=== PATIENT | male | born 1955 | race African-American/Black ===

== ENCOUNTER 2018-03-07 20:08 | Emergency (ER) | payer OTHER ==
[2018-03-07 20:45] LABS: #Basophils 0.1 thou/uL (0.0-0.2); #Eosinphils 0.1 thou/uL (0.0-0.7); #Lymphocytes 3.5 thou/uL (1.20-3.40); #Monocytes 0.8 thou/uL (0.11-0.59); #Neutrophils 5.8 thou/uL (1.40-6.50); %Basophils 0.6 % (0.0-1.0); %Lymphocytes 34.5 % (21.0-51.0); %Monocytes 7.6 % (0.0-10.0); %Neutrophils 56.4 % (42.0-75.0); Hemoglobin 14.8 g/dL (14.0-18.0); Mean Corpuscular HGB CONC 33.2 g/dL (32.0-36.0); Mean Corpuscular Hemoglobin 31.7 pg (27.0-31.0); Mean Corpuscular Volume 95.4 fL (78.0-98.0); Mean Platelet Volume 8.1 fL (7.4-10.4); Platelet Count 156 thou/uL (130-400); Red Blood Cell (RBC) Count 4.66 mill/uL (4.70-6.10); White Blood Cell (WBC) Count 10.2 thou/uL (4.8-10.8)
[2018-03-07 21:07] LABS: ALT (SGPT) 30 U/L (8-55); AST (SGOT) 27 U/L (5-34); Alkaline Phosphatase 80 U/L (40-150); Anion Gap 9 mmol/L (10-20); BUN (Urea Nitrogen) 15 mg/dL (8.4-25.7); Bilirubin, Total 0.5 mg/dL (0.2-1.2); CK (CPK) 566 U/L (30-200); Calc. Creatinine Clearance 0 mL/min (70-130); Calcium 9.3 mg/dL (7.8-10.44); Carbon Dioxide 26 mmol/L (23-31); Chloride 105 mmol/L (98-107); Estimated GFR-MDRD 60; Globulin 4.1 g/dL (2.4-3.5); Glucose 96 mg/dL (80-115); Magnesium 1.9 mg/dL (1.6-2.6); Potassium 4.4 mmol/L (3.5-5.1); Protein, Total 8.1 g/dL (5.8-8.1); Sodium 136 mmol/L (136-145)
[2018-03-07 22:14] LABS: Bilirubin Negative (Negative); Blood, Urine Trace (Negative); Clarity CLEAR (Clear); Glucose, Urine (Dipstick) Negative (Negative); Leukocyte Negative (Negative); Nitrite Negative (Negative); Protein, Urine (Dipstick) Negative (Neg-Trace); Specific Gravity, Urine 1.006 (1.002-1.036); Urobilinogen 0.2 mg/dL (0.2-1.0); pH, Urine 7.5 (5.0-9.0)
[2018-03-07 22:16] LABS: Bacteria/HPF None Seen HPF (None Seen); Hyaline Casts/LPF 0-3 HYALINE CAST LPF (0-3 Hyaline); RBC/HPF 0-3 HPF (0-3); Squamous Epithelial None Seen HPF (0-3); WBC/HPF None Seen HPF (0-3)
--- NOTE | 2018-03-07 23:40 | ULT ---
DOPPLER VENOUS ULTRASOUND OF BOTH LOWER EXTREMITIES: INDICATIONS: Bilateral calf pain. TECHNIQUE: Diaz scale, color Doppler, and vascular duplex with spectral analysis was performed of the deep venou s structures of both lower extremities. The common femoral vein, superficial femoral vein, popliteal vein, posterior tibial vein, proximal greater saphenous, and proximal profunda veins were assessed bi laterally. FINDINGS: There is normal compression, flow, and augmentation seen within the deep venous structures of both lo wer extremities. IMPRESSION: No evidence of deep venous thrombosis within both lower extremities. POS: [facility]
== END 2018-03-07 22:47 | disposition home or self-care (01) ==
LOC: ERS 20:08
DX: R25.2 Cramp and spasm (principal); K21.9 Gastro-esophageal reflux disease without esophagitis; I10 Essential (primary) hypertension; F41.9 Anxiety disorder, unspecified; Z79.899 Other long term (current) drug therapy
CPT/HCPCS: 80053; 81003; 81015; 82550; 83735; 85025; 85379; 93970; 96360; 96361

== ENCOUNTER 2018-10-20 13:29 | Outpatient (CLI) | payer MEDICARE, OTHER ==
--- NOTE | 2018-10-20 15:05 | ULT ---
SCROTAL/TESTICULAR ULTRASOUND: 10/20/18 HISTORY: Left hydrocele and left inguinal pain. Evaluate for inguinal hernia. TECHNIQUE: Multiplanar yanes scale and color Doppler images were obtained in a bilateral testicular/scrotal ultra sound. Spectral analysis of the Doppler waveforms of the testicles were performed. FINDINGS: The testicles are normal in echogenicity without focal lesions and demonstrate normal symmetric inter nal flow. The epididymi are unremarkable bilaterally. There are moderate bilateral hydroceles, left g reater than right. There is no evidence of inguinal hernia. IMPRESSION: 1. Bilateral hydroceles, left greater than right. 2. No evidence of inguinal hernia. POS: [facility]
== END 2018-10-20 13:30 | disposition home or self-care (01) ==
LOC: BICULT 13:29
PROVIDERS: ATTEND Urology
DX: N43.3 Hydrocele, unspecified (principal)
CPT/HCPCS: 76870; 93976

== ENCOUNTER 2019-04-06 09:02 | Outpatient (CLI) | payer MEDICARE ==
[2019-04-06 10:36] LABS: Hemoglobin 15.1 g/dL (14.0-18.0); Mean Corpuscular HGB CONC 33.2 g/dL (32.0-36.0); Mean Corpuscular Hemoglobin 31.8 pg (27.0-31.0); Mean Corpuscular Volume 95.7 fL (78.0-98.0); Mean Platelet Volume 7.6 fL (7.4-10.4); Platelet Count 146 thou/uL (130-400); RBC Distribution Width 13.4 % (11.5-14.5); Red Blood Cell (RBC) Count 4.73 mill/uL (4.70-6.10); White Blood Cell (WBC) Count 7.4 thou/uL (4.8-10.8)
[2019-04-06 10:45] LABS: PTT 28.6 SEC (22.9-36.1); Prothrombin Time 13.6 SEC (12.0-14.7)
[2019-04-06 10:50] LABS: Bacteria/HPF None Seen HPF (None Seen); Bilirubin Negative (Negative); Blood, Urine 1+ (Negative); Clarity Clear (Clear); Glucose, Urine (Dipstick) Normal (Negative); Leukocyte Negative Leu/uL (Negative); Nitrite Negative (Negative); Protein, Urine (Dipstick) Negative (Neg-Trace); Squamous Epithelial 0-3 HPF (0-3); Urobilinogen Normal mg/dL (Less than 2); WBC/HPF 0-3 HPF (0-3)
[2019-04-06 10:57] LABS: Anion Gap 13 mmol/L (10-20); BUN (Urea Nitrogen) 13 mg/dL (8.4-25.7); Calc. Creatinine Clearance 0 mL/min (70-130); Calcium 9.6 mg/dL (7.8-10.44); Carbon Dioxide 26 mmol/L (23-31); Chloride 106 mmol/L (98-107); Estimated GFR-MDRD 74; Glucose 97 mg/dL (80-115); Potassium 4.7 mmol/L (3.5-5.1); Sodium 140 mmol/L (136-145)
== END 2019-04-06 09:03 | disposition home or self-care (01) ==
LOC: LABBT 09:02
PROVIDERS: ATTEND Urology
DX: Z01.818 Encounter for other preprocedural examination (principal); R97.20 Elevated prostate specific antigen [PSA]
CPT/HCPCS: 80048; 81001; 85027; 85610; 85730; 87086; 93005; 93010

== ENCOUNTER 2019-04-20 05:47 | Day surgery (SDC) | payer MEDICARE ==
[2019-04-06 09:54] VITALS: BMI 32.8
[2019-04-20] MEDS ORDERED: Ondansetron PF 4 MG/2 ML Vial ONE (09:37)
[2019-04-20] MEDS ORDERED: Ketorolac Tromethamine 30 MG/ML VIAL ONE (09:37)
[2019-04-20] MEDS ORDERED: Lidocaine 1% PF 5 ML VIAL ONE (09:37)
[2019-04-20] MEDS ORDERED: Dexamethasone 20 MG/5 ML VIAL ONE (09:37)
[2019-04-20] MEDS ORDERED: PROPOFOL 200 MG/20 ML VIAL ONE (09:37)
--- NOTE | 2019-04-20 11:41 | OP ---
DATE OF PROCEDURE: 04/20/2019 PRIMARY CARE PHYSICIAN: Cheng Alexander MD PREOPERATIVE DIAGNOSES: 1. A 63-year-old male with history of microscopic hematuria, previous workup negative. 2. History of elevated PSA velocity, unremarkable JACQUELINE. POSTOPERATIVE DIAGNOSES: 1. A 63-year-old male with history of microscopic hematuria, previous workup negative. 2. History of elevated PSA velocity, unremarkable JACQUELINE. PROCEDURES PERFORMED: Flexible cystoscopy, transrectal ultrasound volume study, 12-core needle biopsy of the prostate. ANESTHESIA: LMA. COMPLICATIONS: None apparent. DISPOSITION: To recovery room in stable condition. INDICATIONS FOR PROCEDURE AND HISTORY: This is a 63-year-old male previously followed by Dr. Negrete for history of BPH. Previous cystoscopy due to microscopic hematuria demonstrated coapting lateral lobes with no significant obstruction. CT previously demonstrated no significant pathology of concern. He presents today for flexible cystoscopy due to recurrent microhematuria and elevated PSA velocity. Risks and complications and indications reviewed including, but not limited to, bleeding, pain, infection, chronic pain, and urosepsis. All questions were answered to his satisfaction. He desired to proceed. DESCRIPTION OF PROCEDURE: After an informed consent was signed, the patient was taken to the operating room, placed in a supine position with the genital area prepped and draped in the usual surgical sterile fashion. A flexible cystoscopy was performed, which demonstrated normal anterior and posterior urethra. Bilobar coapting lateral lobes, however, no significant obstructive lateral lobes were appreciated. Slightly high median bar, however, no evidence of intravesical median lobe. The right UO was identified in the intraureteral bridge about 3 mm proximal to the bladder neck. The left UO was identified, however, it was somewhat subtle compared to the right. His previous CT demonstrated no evidence of hydronephrosis. At this time, we surveyed the bladder and as previous, he does have an oblong morphology of the bladder with no bladder tumors were seen. At this time, the cystoscope was then subsequently removed. We did place the patient in the left lateral decubitus position to perform a transrectal ultrasound biopsy with pressure points padded. Transrectal ultrasound probe was placed after an unremarkable digital rectal exam. A volume study was obtained demonstrating volume of 38 g: Width of 5.2, height of 3.4, length of 4.09. Subsequently, we performed a 12- core needle biopsy of the prostate in a standard 12 core biopsy. He tolerated the biopsy uneventfully. Transitioned to recovery room in stable condition. Due to Cipro resistance swab on the rectal smear, he is on Omnicef. He will continue 5-day course as previously prescribed and will follow up with me next week to review pathology. Job ID: [id number] MTDD
[2019-04-20] MEDS ORDERED: Meropenem 2 GM, Admixture Fee 1 EACH in Sodium Chloride 0.9% 100 ML IVPB SCH (15:00)
== END 2019-04-20 10:35 | disposition home or self-care (01) ==
LOC: SDC 05:47
PROVIDERS: ATTEND Urology
PROC: 0VB03ZX Excision of Prostate, Percutaneous Approach, Diagnostic (ICD-10-PCS; principal; 2019-04-20)
DX: R31.29 Other microscopic hematuria (principal); R97.20 Elevated prostate specific antigen [PSA]; N52.9 Male erectile dysfunction, unspecified; I10 Essential (primary) hypertension; K21.9 Gastro-esophageal reflux disease without esophagitis; Z79.899 Other long term (current) drug therapy; Z87.891 Personal history of nicotine dependence; Z88.8 Allergy status to other drugs, medicaments and biological substances; Z91.013 Allergy to seafood; Z91.041 Radiographic dye allergy status
CPT/HCPCS: 88305; J1100; J1885; J2001; J2405; J2704

== ENCOUNTER 2019-05-03 07:52 | Outpatient (CLI) | payer MEDICARE ==
--- NOTE | 2019-05-03 09:29 | CT ---
CT ABDOMEN AND PELVIS PERFORMED WITHOUT CONTRAST ENHANCEMENT: Date: 05/03/19 HISTORY: Microhematuria. FINDINGS: The lung bases show some linear scarring. There is a calcified granuloma in the lingula. There is a s mall hiatal hernia noted. Right and left adrenal glands, and right and left kidneys are normal in size. There is what appears t o be some parapelvic cyst formation on the left. There are no renal calculi seen. There is no signifi cant periaortic or mesenteric adenopathy. CT of pelvis was performed with contrast enhancement. Prostate is prominent. Bladder wall does not ap pear significantly thickened. There is no pelvic lymphadenopathy or mass. IMPRESSION: 1. No evidence of renal calculi. 2. Small hiatal hernia. 3. Post cholecystectomy change. 4. Enlarged prostate. POS: [facility]
== END 2019-05-03 07:53 | disposition home or self-care (01) ==
LOC: CT 07:52
PROVIDERS: ATTEND Urology
DX: R31.29 Other microscopic hematuria (principal); K44.9 Diaphragmatic hernia without obstruction or gangrene; N40.0 Benign prostatic hyperplasia without lower urinary tract symptoms; Z90.49 Acquired absence of other specified parts of digestive tract
CPT/HCPCS: 74176

== ENCOUNTER 2019-05-09 06:20 | Outpatient (CLI) | payer MEDICARE ==
[2019-05-09 11:20] LABS: Hemoglobin 14.2 g/dL (14.0-18.0); Mean Corpuscular HGB CONC 32.9 g/dL (32.0-36.0); Mean Corpuscular Volume 97.3 fL (78.0-98.0); Mean Platelet Volume 8.3 fL (7.4-10.4); Platelet Count 129 thou/uL (130-400); RBC Distribution Width 13.3 % (11.5-14.5); Red Blood Cell (RBC) Count 4.44 mill/uL (4.70-6.10); White Blood Cell (WBC) Count 6.5 thou/uL (4.8-10.8)
[2019-05-09 11:21] LABS: Bacteria/HPF None Seen HPF (None Seen); Bilirubin Negative (Negative); Blood, Urine Trace (Negative); Clarity Clear (Clear); Glucose, Urine (Dipstick) Normal (Negative); Leukocyte Negative Leu/uL (Negative); Nitrite Negative (Negative); Protein, Urine (Dipstick) Negative (Neg-Trace); RBC/HPF 0-3 HPF (0-3); Squamous Epithelial None Seen HPF (0-3); Urobilinogen Normal mg/dL (Less than 2); WBC/HPF 0-3 HPF (0-3)
[2019-05-09 11:31] LABS: PTT 30.7 SEC (22.9-36.1); Prothrombin Time 13.5 SEC (12.0-14.7)
[2019-05-09 11:51] LABS: Anion Gap 14 mmol/L (10-20); BUN (Urea Nitrogen) 12 mg/dL (8.4-25.7); Calc. Creatinine Clearance 0 mL/min (70-130); Calcium 8.7 mg/dL (7.8-10.44); Carbon Dioxide 23 mmol/L (23-31); Chloride 108 mmol/L (98-107); Estimated GFR-MDRD 88; Glucose 75 mg/dL (80-115); Potassium 4.8 mmol/L (3.5-5.1); Sodium 140 mmol/L (136-145)
--- NOTE | 2019-05-12 13:06 | EKG ---
Test Reason : Blood Pressure : / mmHG Vent. Rate : 055 BPM Atrial Rate : 055 BPM P-R Int : 176 ms QRS Dur : 090 ms QT Int : 392 ms P-R-T Axes : 065 014 022 degrees QTc Int : 375 ms Sinus bradycardia Otherwise normal ECG Confirmed by NOHEMY SALAZAR ([id number]) on 05/12/2019 1:05:50 PM Referred By: JOSE Confirmed By:NOHEMY SALAZAR
== END 2019-05-09 06:21 | disposition home or self-care (01) ==
LOC: LABBT 06:20
PROVIDERS: ATTEND Urology
DX: Z01.818 Encounter for other preprocedural examination (principal); N43.3 Hydrocele, unspecified
CPT/HCPCS: 80048; 81001; 85027; 85610; 85730; 87086; 93005; 93010

== ENCOUNTER 2019-05-23 07:59 | Day surgery (SDC) | payer MEDICARE ==
[2019-05-09 09:34] VITALS: BMI 32.8
[2019-05-23] MEDS ORDERED: Lidocaine 1% PF 5 ML VIAL ONE (09:48)
[2019-05-23] MEDS ORDERED: Ondansetron PF 4 MG/2 ML Vial ONE (09:48)
[2019-05-23] MEDS ORDERED: Dexamethasone 20 MG/5 ML VIAL ONE (09:48)
[2019-05-23] MEDS ORDERED: PROPOFOL 200 MG/20 ML VIAL ONE (09:48)
[2019-05-23] MEDS ORDERED: Fentanyl 100 MCG/2 ML VIAL ONE ×3 (10:45→13:07)
[2019-05-23] MEDS ORDERED: Bacitracin Zinc Ointment 30 gm TUBE ONE (10:48)
[2019-05-23] MEDS ORDERED: Sodium Chloride 0.9% 10 ML ONE (10:48)
[2019-05-23] MEDS ORDERED: Gentamicin 80 MG/2 ML VIAL ONE (10:48)
[2019-05-23] MEDS ORDERED: HYDROcodone/Acetaminophen 5/325 mg Tablet ONE (13:35)
--- NOTE | 2019-05-23 13:35 | OP ---
DATE OF PROCEDURE: 05/23/2019 PRIMARY CARE PHYSICIAN: Cheng Alexander MD PREOPERATIVE DIAGNOSIS: A 63-year-old male with history of left hydrocele. POSTOPERATIVE DIAGNOSIS: A 63-year-old male with history of left hydrocele. PROCEDURE PERFORMED: Left hydrocelectomy. ANESTHESIA: General. COMPLICATIONS: None apparent. ESTIMATED BLOOD LOSS: Minimal to none. DRAINS: A quarter-inch Udall to the left hemiscrotum x1. SPECIMEN: Left hydrocele sac. ESTIMATED BLOOD LOSS: Minimal. INDICATIONS FOR PROCEDURE AND HISTORY: Mr. Horton is a pleasant 63-year-old male, with history of BPH, history of hydrocele, microscopic hematuria, elevated PSA. I have worked up his elevated PSA, velocity of which is negative for malignancy. The patient is known to have history of microscopic hematuria. Cystoscopy negative. His recent CT of the abdomen and pelvis demonstrates no significant pathology of concern. As he has symptomatic left hydrocele, presents for elective hydrocelectomy. Risks and complications of the procedure were reviewed including, but not limited to, recurrence of hydrocele, chronic pain, hematoma, testicular atrophy, injury to adjacent organs and the scrotal contents, bleeding, pain, infection, chronic pain. All questions answered and options of observation also reviewed and he desired to proceed. DESCRIPTION OF PROCEDURE: After an informed consent was signed, the patient was taken to the operating room, placed in a supine position with the genital area prepped and draped in the usual surgical sterile fashion. Again, noted was a moderate size left hydrocele. A left transverse scrotal incision was made with a 15 blade. The dartos fascia was opened to the limits of skin incision. We sharply dissected the tunica vaginalis, delivering the hydrocele sac through the scrotal incision. This was mobilized to the level of the cord, external ring. The hydrocele sac was then opened with Metzenbaum scissors and approximately 300 mL of clear yellow straw fluid was evacuated from the hydrocele. The testicle itself was grossly unremarkable. The redundant hydrocele sac was excised and the edges were cauterized. Using 3-0 Vicryl, we oversewed the edges of the hydrocele sac in a baseball stitch fashion in a continuous manner. The scrotal contents were inspected, irrigated with antibiotic irrigation. We obtained good hemostasis of the dartos fascia being meticulous and obtained hemostasis with electrocautery as needed. The quarter-inch Udall was placed in the left inferior aspect of the scrotum with a Deisi, the Yanely was then sutured to skin using 3 -0 nylon. The cord and the testicle were then placed in the left hemiscrotum with care attention to pay there was avoidance of twisting of the cord. The left testicle was placed into the left hemiscrotum in its normal anatomical position. The dartos fascia was then closed with 2-0 Vicryl in a running fashion. Skin closed with 2 -0 chromic in a vertical mattress. sterile pressure dressing was applied and he tolerated the procedure well. He will follow up with me this Thursday for wound inspection, drain removal. He is discharged with [place] 5/325 one to two p.o. q.6 to 8 hours p.r.n., #30 with no refill, Keflex for 7 days. Job ID: [id number] MTDD
== END 2019-05-23 14:38 | disposition home or self-care (01) ==
LOC: SDC 07:59
PROVIDERS: ATTEND Urology
PROC: 0VB70ZZ Excision of Left Tunica Vaginalis, Open Approach (ICD-10-PCS; principal; 2019-05-23)
DX: N43.3 Hydrocele, unspecified (principal); R97.20 Elevated prostate specific antigen [PSA]; N40.0 Benign prostatic hyperplasia without lower urinary tract symptoms; I10 Essential (primary) hypertension; K21.9 Gastro-esophageal reflux disease without esophagitis; Z79.899 Other long term (current) drug therapy; Z88.8 Allergy status to other drugs, medicaments and biological substances; Z91.013 Allergy to seafood; Z91.041 Radiographic dye allergy status; Z98.890 Other specified postprocedural states
CPT/HCPCS: 88302; J0690; J1100; J1580; J2001; J2405; J2704; J3010; J3370

== ENCOUNTER 2019-11-08 22:55 | Emergency (ER) | payer MEDICARE ==
--- NOTE | 2019-11-09 07:33 | ULT ---
PRELIMINARY REPORT/DIRECT RADIOLOGY/EMERGENCY AFTER HOURS PROCEDURE ULTRASOUND OF TESTICLES CLINICAL HISTORY: Pain. Edema. TECHNIQUE: Multiple ultrasound images of the testicles and scrotum were obtained and submitted for in terpretation. COMPARISON: None FINDINGS: RIGHT: The right testicle measures 3.7 x 4.0 x 3.0 cm. There is normal parenchymal echotexture on the images obtained. There is normal Doppler vascularity on the images obtained. There is no evidence fo r mass on the images obtained. The right epididymal head measures 7.2 mm. There are no focal lesions seen. A large hydrocele is seen. There is no evidence of varicocele. LEFT: The left testicle measures 3.2 x 3.7 x 2.2 cm. There is normal parenchymal echotexture on the i mages obtained. There is normal Doppler vascularity on the images obtained. There is no evidence for mass on the images obtained. The left epididymal head measures 10.2 mm. There are no focal lesions se en. A large hydrocele is seen There is no evidence of varicocele. IMPRESSION: 1.Large bilateral hydroceles. Otherwise unremarkable ultrasound of the bilateral testicles. No sonogr aphic evidence for testicular torsion. ELECTRONICALLY SIGNED BY: Glen Vinson MD Nov 09, 2019 1:01:50 AM CDT FINAL REPORT TESTICULAR ULTRASOUND: I agree with the preliminary report. There is no evidence of intratesticular mass or torsion. There is a moderate-sized right hydrocele. There is a very trace or tiny left hydrocele. Epididymi appea r within normal limits. There is marked scrotal thickening, particularly along the left hemiscrotum. A component of scrotal cellulitis is not excluded. POS: [facility]
== END 2019-11-09 01:44 | disposition home or self-care (01) ==
LOC: ERS 22:55
DX: N43.3 Hydrocele, unspecified (principal); K21.9 Gastro-esophageal reflux disease without esophagitis; I10 Essential (primary) hypertension; F41.9 Anxiety disorder, unspecified; Z79.899 Other long term (current) drug therapy
CPT/HCPCS: 76870; 93976

== ENCOUNTER 2020-08-31 13:42 | Emergency (ER) | payer MEDICARE | END 2020-08-31 14:35 | disposition home or self-care (01) | LOC: ERS 13:42 | DX: B86 Scabies (principal); K21.9 Gastro-esophageal reflux disease without esophagitis; I10 Essential (primary) hypertension; Z79.899 Other long term (current) drug therapy | CPT/HCPCS: 99282 ==

== ENCOUNTER 2020-09-03 06:38 | Emergency (ER) | payer MEDICARE | END 2020-09-03 08:17 | disposition home or self-care (01) | LOC: ERS 06:38 | DX: B86 Scabies (principal); K21.9 Gastro-esophageal reflux disease without esophagitis; I10 Essential (primary) hypertension; Z79.899 Other long term (current) drug therapy | CPT/HCPCS: 99282 ==

== ENCOUNTER 2020-09-19 16:03 | Inpatient (IN) | payer MEDICARE ==
[2020-09-19 17:31] LABS: #Basophils 0.1 thou/uL (0.0-0.2); #Eosinphils 0.1 thou/uL (0.0-0.7); #Lymphocytes 2.3 thou/uL (1.20-3.40); #Monocytes 0.6 thou/uL (0.11-0.59); #Neutrophils 4.8 thou/uL (1.40-6.50); %Basophils 0.7 % (0.0-1.0); %Eosinophils 1.4 % (0.0-10.0); %Lymphocytes 29.2 % (21.0-51.0); %Neutrophils 60.6 % (42.0-75.0); Hemoglobin 13.6 g/dL (14.0-18.0); Mean Corpuscular Hemoglobin 30.6 pg (27.0-31.0); Mean Corpuscular Volume 95.8 fL (78.0-98.0); Mean Platelet Volume 7.6 fL (7.4-10.4); Platelet Count 157 thou/uL (130-400); RBC Distribution Width 13.4 % (11.5-14.5); Red Blood Cell (RBC) Count 4.45 mill/uL (4.70-6.10); White Blood Cell (WBC) Count 7.9 thou/uL (4.8-10.8)
[2020-09-19 17:54] LABS: ALT (SGPT) 35 U/L (8-55); AST (SGOT) 29 U/L (5-34); Albumin 4.1 g/dL (3.4-4.8); Alkaline Phosphatase 84 U/L (40-110); Anion Gap 15 mmol/L (10-20); BUN (Urea Nitrogen) 18 mg/dL (8.4-25.7); Bilirubin, Total 0.2 mg/dL (0.2-1.2); Calc. Creatinine Clearance 0 mL/min (70-130); Calcium 9.1 mg/dL (7.8-10.44); Carbon Dioxide 22 mmol/L (23-31); Chloride 108 mmol/L (98-107); Globulin 3.3 g/dL (2.4-3.5); Glucose 97 mg/dL (80-115); Potassium 4.1 mmol/L (3.5-5.1); Protein, Total 7.4 g/dL (5.8-8.1); Sodium 141 mmol/L (136-145)
[2020-09-19 18:25] LABS: Bacteria/HPF None Seen HPF (None Seen); Bilirubin Negative (Negative); Blood, Urine Trace (Negative); Clarity Clear (Clear); Glucose, Urine (Dipstick) Normal (Negative); Ketone, Urine Negative (Negative); Leukocyte Negative Leu/uL (Negative); Nitrite Negative (Negative); Protein, Urine (Dipstick) Negative (Neg-Trace); RBC/HPF 0-3 HPF (0-3); Specific Gravity, Urine 1.016 (1.002-1.036); Squamous Epithelial None Seen HPF (0-3); Urobilinogen Normal mg/dL (Less than 2); WBC/HPF 0-3 HPF (0-3)
[2020-09-19] MEDS ORDERED: Bisacodyl 5 MG TAB PO PRN (20:53)
[2020-09-19] MEDS ORDERED: Ondansetron PF 4 MG/2 ML Vial IVP PRN (20:53)
[2020-09-19] MEDS ORDERED: Acetaminophen 325 MG TAB PO PRN (20:53)
[2020-09-19] MEDS ORDERED: HYDROcodone/Acetaminophen 7.5/325 mg Tablet PO PRN (20:53)
[2020-09-19] MEDS ORDERED: Loratadine 10 MG TAB PO PRN (21:04)
[2020-09-19 21:30] LABS: Iron 66 ug/dL (65-175); Iron Binding Capacity, Total 248 mcg/dL (261-462)
[2020-09-19] MEDS: carBAMazepine 200 MG TAB PO SCH (23:20)
[2020-09-20 05:36] LABS: SARS-CoV-2 PCR by NAA Not Detected (NotDetected)
[2020-09-20 06:31] LABS: ALT (SGPT) 33 U/L (8-55); AST (SGOT) 25 U/L (5-34); Alkaline Phosphatase 78 U/L (40-110); Anion Gap 11 mmol/L (10-20); BUN (Urea Nitrogen) 13 mg/dL (8.4-25.7); Bilirubin, Total 0.3 mg/dL (0.2-1.2); Calc. Creatinine Clearance 0 mL/min (70-130); Calcium 9.3 mg/dL (7.8-10.44); Carbon Dioxide 25 mmol/L (23-31); Cardiac Risk 3.7 (Less than 4.5); Chloride 107 mmol/L (98-107); Cholesterol 159 mg/dl (< 200 Desired); Globulin 3.5 g/dL (2.4-3.5); Glucose 95 mg/dL (80-115); HDL Cholesterol 43 mg/dL (>60 Neg Risk); LDL Cholesterol, Calculated 105 mg/dL; Magnesium 1.8 mg/dL (1.6-2.6); Protein, Total 7.5 g/dL (5.8-8.1); Sodium 139 mmol/L (136-145); Triglycerides 55 mg/dL (Less than 150)
[2020-09-20 06:36] LABS: Band 1 % (5-11); Hemoglobin 14.1 g/dL (14.0-18.0); Lymphocytes 24 % (21-51); MDiff Complete? YES; Mean Corpuscular HGB CONC 32.1 g/dL (32.0-36.0); Mean Corpuscular Hemoglobin 30.8 pg (27.0-31.0); Mean Platelet Volume 7.2 fL (7.4-10.4); Monocytes 8 % (0-10); Neutrophil 43 % (42-75); Platelet Count 152 thou/uL (130-400); Platelet Morphology Comment Appears Adequate; RBC Distribution Width 13.5 % (11.5-14.5); Reactive Lymphocytes 24 % (0-10); Red Blood Cell (RBC) Count 4.58 mill/uL (4.70-6.10); White Blood Cell (WBC) Count 10.1 thou/uL (4.8-10.8)
[2020-09-20] MEDS ORDERED: Pantoprazole 40 MG VIAL ONE (08:38)
[2020-09-20] MEDS ORDERED: Enoxaparin Sodium 40 MG/0.4 ML SYRINGE ONE (08:38)
[2020-09-20] MEDS: Losartan 25 MG TAB PO SCH (08:50)
[2020-09-20] MEDS: Enoxaparin Sodium 40 MG/0.4 ML SYRINGE SC SCH (08:51)
[2020-09-20] MEDS: Pantoprazole 40 MG GRANULES PACKET PO SCH (09:37)
[2020-09-20] MEDS: carBAMazepine 200 MG TAB PO SCH ×2 (09:37→20:27)
[2020-09-20 16:33] VITALS: BMI 32.1
[2020-09-20] MEDS ORDERED: Aspirin 325 MG TAB PO SCH (17:30)
[2020-09-21] MEDS: Pantoprazole 40 MG GRANULES PACKET PO SCH (08:21)
[2020-09-21 08:22] VITALS: BP 133/73
[2020-09-21] MEDS: Losartan 25 MG TAB PO SCH (08:23)
[2020-09-21] MEDS: carBAMazepine 200 MG TAB PO SCH (08:25)
[2020-09-21] MEDS: Enoxaparin Sodium 40 MG/0.4 ML SYRINGE SC SCH (08:26)
[2020-09-21] MEDS ORDERED: Aspirin 81 mg Enteric Coated Tablet PO SCH (09:00)
[2020-09-21] MEDS ORDERED: Aspirin 325 MG TAB PO SCH (09:00)
[2020-09-21 11:59] VITALS: TEMP 98.3
[2020-09-22] MEDS ORDERED: Amlodipine 5 MG TAB PO SCH (09:00)
== END 2020-09-21 16:05 | disposition home or self-care (01) | DRG 69 ==
LOC: ERS 16:03 → 2SE 19:20 → ERHOLD 19:29 → 2SE 09-20 15:22
PROVIDERS: ADMIT Internal Medicine; ATTEND Internal Medicine
DX: G45.9 Transient cerebral ischemic attack, unspecified (principal); Z20.822 Contact with and (suspected) exposure to COVID-19; K21.9 Gastro-esophageal reflux disease without esophagitis; I10 Essential (primary) hypertension; F41.9 Anxiety disorder, unspecified; G25.81 Restless legs syndrome; I08.1 Rheumatic disorders of both mitral and tricuspid valves; Z98.1 Arthrodesis status; Z79.899 Other long term (current) drug therapy; Z79.82 Long term (current) use of aspirin; Z91.013 Allergy to seafood; Z88.8 Allergy status to other drugs, medicaments and biological substances; Z91.09 Other allergy status, other than to drugs and biological substances; Z28.21 Immunization not carried out because of patient refusal; Z87.891 Personal history of nicotine dependence; Z90.49 Acquired absence of other specified parts of digestive tract
CPT/HCPCS: 36415; 36416; 70450; 70551; 80053; 80061; 81003; 81015; 83036; 83540; 83550; 83735; 83880; 84484; 85007; 85025; 85027; 87635; 93005; 93306; 93880; C9113; J1650; U0003; U0005

== ENCOUNTER 2020-09-26 10:27 | Observation (INO) | payer MEDICARE ==
[2020-09-26] MEDS ORDERED: Aspirin Chewable 81 MG TAB ONE (10:47)
[2020-09-26 11:17] LABS: #Basophils 0.1 thou/uL (0.0-0.2); #Eosinphils 0.1 thou/uL (0.0-0.7); #Monocytes 0.5 thou/uL (0.11-0.59); #Neutrophils 4.3 thou/uL (1.40-6.50); %Eosinophils 1.3 % (0.0-10.0); %Lymphocytes 28.6 % (21.0-51.0); %Monocytes 7.6 % (0.0-10.0); %Neutrophils 61.6 % (42.0-75.0); Hemoglobin 15.1 g/dL (14.0-18.0); Mean Corpuscular HGB CONC 32.5 g/dL (32.0-36.0); Mean Corpuscular Hemoglobin 31.2 pg (27.0-31.0); Mean Corpuscular Volume 96.1 fL (78.0-98.0); Mean Platelet Volume 7.9 fL (7.4-10.4); Platelet Count 153 thou/uL (130-400); RBC Distribution Width 13.2 % (11.5-14.5); Red Blood Cell (RBC) Count 4.83 mill/uL (4.70-6.10); White Blood Cell (WBC) Count 6.9 thou/uL (4.8-10.8)
[2020-09-26] MEDS ORDERED: Nitroglycerin 2% Ointment 1 INCH/1 GM Packet ONE (11:32)
[2020-09-26 12:41] LABS: ALT (SGPT) 29 U/L (8-55); AST (SGOT) 26 U/L (5-34); Albumin 4.1 g/dL (3.4-4.8); Alkaline Phosphatase 96 U/L (40-110); Anion Gap 13 mmol/L (10-20); BUN (Urea Nitrogen) 12 mg/dL (8.4-25.7); Bilirubin, Total 0.5 mg/dL (0.2-1.2); Calc. Creatinine Clearance 0 mL/min (70-130); Calcium 9.4 mg/dL (7.8-10.44); Carbon Dioxide 25 mmol/L (23-31); Chloride 102 mmol/L (98-107); Globulin 3.6 g/dL (2.4-3.5); Glucose 95 mg/dL (80-115); Lipase 21 U/L (8-78); Potassium 4.2 mmol/L (3.5-5.1); Protein, Total 7.7 g/dL (5.8-8.1); Sodium 136 mmol/L (136-145)
[2020-09-26 15:15] LABS: Troponin I Less than 0.010 ng/mL (< 0.028)
[2020-09-26 15:43] VITALS: BMI 32.6
[2020-09-26] MEDS: Nitroglycerin 2% Ointment 1 INCH/1 GM Packet TOP SCH ×2 (16:13→20:27)
[2020-09-26 18:11] LABS: Troponin I Less than 0.010 ng/mL (< 0.028)
[2020-09-26] MEDS: carBAMazepine 200 MG TAB PO SCH (20:27)
[2020-09-26 21:23] LABS: SARS-CoV-2 PCR by NAA Not Detected (NotDetected)
[2020-09-26] MEDS ORDERED: Acetaminophen 325 MG TAB PO PRN (21:57)
[2020-09-27] MEDS: Nitroglycerin 2% Ointment 1 INCH/1 GM Packet TOP SCH ×2 (05:01→14:23)
[2020-09-27 05:23] LABS: Cardiac Risk 3.7 (Less than 4.5)
[2020-09-27] MEDS ORDERED: Losartan 25 MG TAB PO SCH (09:00)
[2020-09-27] MEDS ORDERED: Aspirin Chewable 81 MG TAB PO SCH (09:00)
[2020-09-27] MEDS ORDERED: Amlodipine 5 MG TAB PO SCH (09:00)
[2020-09-27] MEDS: carBAMazepine 200 MG TAB PO SCH (10:39)
[2020-09-27 11:30] VITALS: BP 132/74; TEMP 97.7
[2020-09-27] MEDS ORDERED: Pantoprazole 40 MG GRANULES PACKET PO SCH (11:30)
[2020-09-27] MEDS ORDERED: Atorvastatin Calcium 40 MG TAB PO SCH (21:00)
== END 2020-09-27 14:37 | disposition home or self-care (01) ==
LOC: ERS 10:27 → 2SW 13:52
PROVIDERS: ADMIT Family Medicine; ATTEND Hospitalist
DX: R07.89 Other chest pain (principal); I10 Essential (primary) hypertension; E78.5 Hyperlipidemia, unspecified; G62.9 Polyneuropathy, unspecified; G25.81 Restless legs syndrome; K21.9 Gastro-esophageal reflux disease without esophagitis; Z86.73 Personal history of transient ischemic attack (TIA), and cerebral infarction without residual deficits; Z87.891 Personal history of nicotine dependence; Z79.82 Long term (current) use of aspirin; Z79.899 Other long term (current) drug therapy; Z88.8 Allergy status to other drugs, medicaments and biological substances; Z91.013 Allergy to seafood; Z91.041 Radiographic dye allergy status; Z20.822 Contact with and (suspected) exposure to COVID-19
CPT/HCPCS: 71045; 78452; 80053; 80061; 83690; 84484 ×2; 85025; 93005; 93017; 94760 ×2; 99285; A9500; G0378 ×3; U0003; U0005; 36415; 87635; J0153

== ENCOUNTER 2020-10-07 09:48 | Emergency (ER) | payer MEDICARE ==
[2020-10-07 10:32] LABS: #Eosinphils 0.1 thou/uL (0.0-0.7); #Lymphocytes 1.8 thou/uL (1.20-3.40); #Monocytes 0.5 thou/uL (0.11-0.59); #Neutrophils 5.6 thou/uL (1.40-6.50); %Basophils 0.4 % (0.0-1.0); %Eosinophils 0.8 % (0.0-10.0); %Lymphocytes 22.5 % (21.0-51.0); %Monocytes 6.4 % (0.0-10.0); %Neutrophils 69.9 % (42.0-75.0); Hemoglobin 14.5 g/dL (14.0-18.0); Mean Corpuscular HGB CONC 32.4 g/dL (32.0-36.0); Mean Corpuscular Hemoglobin 31.2 pg (27.0-31.0); Mean Corpuscular Volume 96.4 fL (78.0-98.0); Platelet Count 128 thou/uL (130-400); RBC Distribution Width 13.7 % (11.5-14.5); Red Blood Cell (RBC) Count 4.65 mill/uL (4.70-6.10)
[2020-10-07] MEDS ORDERED: Aspirin Chewable 81 MG TAB ONE (10:45)
[2020-10-07 10:56] LABS: ALT (SGPT) 39 U/L (8-55); AST (SGOT) 27 U/L (5-34); Albumin 4.3 g/dL (3.4-4.8); Alkaline Phosphatase 92 U/L (40-110); Anion Gap 14 mmol/L (10-20); BUN (Urea Nitrogen) 14 mg/dL (8.4-25.7); Bilirubin, Total 0.4 mg/dL (0.2-1.2); Calc. Creatinine Clearance 0 mL/min (70-130); Calcium 9.3 mg/dL (7.8-10.44); Carbon Dioxide 24 mmol/L (23-31); Chloride 107 mmol/L (98-107); Globulin 3.6 g/dL (2.4-3.5); Glucose 95 mg/dL (80-115); Potassium 4.7 mmol/L (3.5-5.1); Protein, Total 7.9 g/dL (5.8-8.1); Sodium 140 mmol/L (136-145)
[2020-10-07] MEDS ORDERED: Iopamidol-370 76% 500 ML 1 ML ONE (11:00)
[2020-10-07] MEDS ORDERED: diphenhydrAMINE 50 MG/ML VIAL ONE (11:53)
[2020-10-07] MEDS ORDERED: Famotidine/PF 20 mg/2ml Vial ONE (11:53)
[2020-10-07] MEDS ORDERED: methylPREDNISolone Sod Succ/PF 125 MG/2 ML VIAL ONE (11:53)
[2020-10-07 14:10] LABS: Troponin I Less than 0.010 ng/mL (< 0.028)
== END 2020-10-07 14:28 | disposition home or self-care (01) ==
LOC: ERS 09:48
DX: R07.89 Other chest pain (principal); K21.9 Gastro-esophageal reflux disease without esophagitis; I10 Essential (primary) hypertension; Z79.899 Other long term (current) drug therapy; Z79.82 Long term (current) use of aspirin
CPT/HCPCS: 36415; 71045; 71275; 74174; 80053; 84484; 85025; 93005; 94760; 96374; 96375; J1200; J2930; Q9967; S0028